=== PATIENT | male | born 1970 | race African-American/Black ===

== ENCOUNTER 2025-02-06 14:16 | Emergency (ER) | payer OTHER ==
[~2025-02-06] VITALS: Ht 200.7 cm; Wt 98.0 kg
[2025-02-06] MEDS ORDERED: VENTOLIN HFA18 GM (14:29)
[2025-02-06] MEDS ORDERED: ALBUTEROL/IPRATROPIUM 3 ML NEB INH ONE ×2 (14:30→14:45)
[2025-02-06] MEDS ORDERED: TRIUMEQ TABLET1 EACH (14:33)
[2025-02-06] MEDS ORDERED: predniSONE 20 MG TAB PO ONE (14:45)
[2025-02-06] MEDS ORDERED: VENTOLIN HFA18 GM INH ×2 (15:30→16:04)
[2025-02-06] MEDS ORDERED: PREDNISONE20 MG PO ×2 (15:30→16:04)
[2025-02-06 16:03] VITALS: BP 115/84
== END 2025-02-06 16:07 | disposition home or self-care (01) ==
LOC: ED 14:16
DX: J45.901 Unspecified asthma with (acute) exacerbation (principal)
CPT/HCPCS: 12001; 94640; 99284; J7512